=== PATIENT | male | born 1990 | race Caucasian/White ===

== ENCOUNTER 2019-03-20 17:35 | Emergency (ER) | payer MEDICAID, SELFPAY ==
[2019-03-20 17:41] VITALS: BP 110/62; PULSE 72; RESP 16; TEMP 36.6; O2SAT 97
--- NOTE | 2019-03-20 17:56 | ED.GENADUL_ITS ---
Discharge Plan Discharge Details Chief Complaint: Nausea/Vomit/Diar Primary Care Provider: Genna Davey ED Provider: Joss Maldonado Home Meds and New Rx's Prescriptions: No Action ibuprofen 600 MG tablet 600 mg PO Q8H PRN (Reason: Pain) Qty: 15 RF: 0 trazodone 50 mg Tablet 75 mg PO QHS RF: 0 fluoxetine 60 mg Tablet 60 mg PO DAILY RF: 0 Medical Decision Making 28-year-old male presents from home with 2 days of nausea, vomiting, loose watery stool with poor p.o. intake. Patient is afebrile, he is dehydrated in appearance, but vital signs are reassuring. Differential diagnosis includes gastroenteritis, dehydration, electrolyte abnormality. IV placed, laboratories obtained, patient given antiemetic and fluid bolus HPI General Mode of arrival: ambulatory . Date/Time Provider Initiated Documentation: 03/20/19 17:40 . Limitations to Documentation: no limitations . Information obtained by: patient . History of Present Illness 28 year old M presents to the emergency department with the chief complaint of Nausea, vomiting, diarrhea, described as moderate, Quality is described as dull, and is localized to the abdomen. Patient reports no radiation. Patient started experiencing this day(s) and it has been constant. Rest improves symptom(s), Eating worsens symptoms . Patient notes denies fever/chills. Related Data Home Medications Medication Instructions Recorded Confirmed ibuprofen 600 mg PO Q8H PRN #15 tab 01/09/17 03/20/19 fluoxetine 60 mg PO DAILY 03/20/19 03/20/19 trazodone 75 mg PO QHS 03/20/19 03/20/19 Previous Rx's Medication Instructions Recorded ibuprofen 600 mg PO Q8H PRN #15 tab 01/09/17 Allergies Allergy/AdvReac Type Severity Reaction Status Date / Time No Known Allergies Allergy Unverified 03/20/19 17:45 General Stated Complaint: Nausea/Vomit/Diar REJI: 3 Review of Systems Review of Systems No fever. No travel. No suspicious food contacts. 6 systems reviewed and otherwise neg [facility] Surgical History Repair of inguinal hernia Social History Smoking/Tobacco Use Status: Current every day Tobacco Type: cigarettes Alcohol Intake: current Alcohol Intake frequency: a few times a month Drug use: Daily Substance use type: marijuana Do you feel safe at home: Yes Do you feel safe in your relationship?: Yes Exam Narrative Exam Narrative: GEN: awake, alert, oriented 3. Pleasant, well groomed, interactive. HEAD: Normocephalic, atraumatic ENT: Mucous membranes moist, oropharynx dry, External ear exam unremarkable EYES: PERRL, EOMI NECK: Full ROM, no MARI, no menigismus CHEST/RESP: Nontender, clear to auscultation bilateral, no wheeze/rhonchi/rales CARDIOVASCULAR: RRR, no murmur, rub jeb. 2+ Rad pulse bilateral ABDOMEN: Soft, nontender, no mass. +Bowel sounds EXT: Full ROM, no edema, no rash Neuro: Grossly normal neurologic exam, conversant, interactive. Psych: Speech fluent, thoughts congruent, affect normal Course Vital Signs Temperature 36.6 C 03/20/19 17:41 Pulse 72 03/20/19 17:41 Respiratory Rate 16 03/20/19 17:41 Blood Pressure 110/62 03/20/19 17:41 Pulse Oximetry 97 03/20/19 17:41 Temperature 36.6 C 03/20/19 17:41 Temperature Source Temporal Artery Scan 03/20/19 17:41 Pulse 72 03/20/19 17:41 Respiratory Rate 16 03/20/19 17:41 Respiratory Effort Non-Labored 03/20/19 17:44 Blood Pressure 110/62 03/20/19 17:41 Blood Pressure Position Sitting 03/20/19 17:41 Pulse Oximetry 97 03/20/19 17:41 Oxygen Delivery Method Room Air 03/20/19 17:41 Oxygen Flow Rate 0 03/20/19 17:41 Pain Level 4 03/20/19 17:41
[2019-03-20] MEDS: Normal Saline 1,000 ML 1000 ML IV ×2 (18:46→19:30)
[2019-03-20] MEDS: Ondansetron 4 MG/2 ML VIAL IVP (18:46)
[2019-03-20 18:53] LABS: Abs Immature Grans 0.01 k/cumm (0.0-0.09); Absolute Basophil Count 0.03 k/cumm (0.0-0.2); Absolute Eosinophil Count 0.01 k/cumm (0.0-0.7); Absolute Lymphocyte Count 0.99 k/cumm (1.2-3.4); Absolute Monocyte Count 0.69 k/cumm (0.11-0.7); Absolute Neutrophil Count 7.13 k/cumm (1.2-6.7); Basophils % 0.3; Eosinophils % 0.1; HGB 14.8 g/dL (13.5-17.5); Immature Grans % 0.1; Lymphocytes % 11.2; Mean Corp. HGB Concentration 33.6 g/dL (32.0-36.0); Mean Corpuscular Hemoglobin 30.6 pg (27.0-33.0); Mean Corpuscular Volume 91.1 fL (80-95); Mean Platelet Volume 10.4 fL (8.0-11.0); Monocytes % 7.8; Neutrophils % 80.5; Platelet Count 215 x1000/uL (130-400); RBC 4.83 m/cumm (4.50-6.00); RBC Distribution Width 12.8 % (11.8-14.1); White Blood Cell Count 8.86 k/cumm (4.4-10.8)
[2019-03-20 19:13] LABS: ALT 52 U/L (12-78); AST 23 U/L (15-37); Albumin 4.1 g/dL (3.4-5.0); Alkaline Phosphatase 72 U/L (46-116); Anion Gap 10.2 mmol/L (3-11); BUN 9 mg/dL (7-18); Bilirubin, Total 0.9 mg/dL (0.2-1.0); CO2 27.8 mmol/L (21.0-32.0); Calcium 9.3 mg/dL (8.5-10.1); Chloride 102 mmol/L (98-107); Glucose 95 mg/dL (70-100); Lipase 133 U/L (73-393); Potassium 3.8 mmol/L (3.5-5.1); Sodium 140 mmol/L (136-145); Total Protein 7.8 g/dL (6.4-8.2)
[2019-03-20] MEDS: Acetaminophen 500 MG TAB 1000 MG PO (19:15)
[2019-03-20] MEDS: Ondansetron O.D.T. 4 MG TABEF 12 MG PO (20:26)
[2019-03-20 20:27] VITALS: PULSE 84; RESP 18; O2SAT 100
== END 2019-03-20 20:15 | disposition home or self-care (01) ==
PROVIDERS: Emergency Provider Emergency Medicine; PCP Nurse Practitioner Family
DX: K52.9 Noninfective gastroenteritis and colitis, unspecified (principal)
CPT/HCPCS: 36415; 80053; 83690; 96361; 96374; 99284; 85025; J2405